=== PATIENT | male | born 1985 | race Caucasian/White ===

== ENCOUNTER 2019-04-19 00:27 | Emergency (ER) | payer BC ==
[2019-04-19 00:31] VITALS: BP 115/75; PULSE 80; TEMP 97.6
--- NOTE | 2019-04-19 01:06 | ED ---
Upper Extremity HPI - General Chief Complaint: Extremity Injury, Upper Stated Complaint: Rt Wrist Injury Time Seen by Provider: 04/19/19 00:32 Source: patient Mode of arrival: ambulatory Limitations: no limitations - History of Present Illness Initial Comments: 34-year-old male patient presents to the emergency department today for evaluation of right wrist pain. Patient states approximately one hour prior to arrival he attempted to skateboard when he fell backwards with his arm outstretched behind him. Patient states that he had immediate onset of pain to the wrist. States this felt shortly after. He denies hitting his head or losing consciousness during the fall. Denies any other injuries. Patient denies any headache, neck pain, back pain, chest pain, shortness of breath, dizziness, weakness, abdominal pain, nausea, vomiting, or difficulties with bowel movements or urination. - Related Data Previous Rx's Medication Instructions Recorded Ibuprofen [Motrin] 600 mg PO Q8HR PRN #30 tab 04/19/19 Allergies Allergy/AdvReac Type Severity Reaction Status Date / Time No Known Allergies Allergy Verified 04/19/19 00:31 Review of Systems ROS Statement: Those systems with pertinent positive or pertinent negative responses have been documented in the HPI. ROS Other: All systems not noted in ROS Statement are negative. Past Medical History Past Medical History: No Reported History History of Any Multi-Drug Resistant Organisms: None Reported Past Surgical History: No Surgical Hx Reported Past Psychological History: No Psychological Hx Reported Smoking Status: Never smoker Past Alcohol Use History: Occasional Past Drug Use History: None Reported General Exam Limitations: no limitations General appearance: alert, in no apparent distress, other (This is a well- developed, well-nourished adult male patient in no acute distress. Vital signs upon presentation are temperature 97.6F, pulse 80, respirations 20, blood pressure 115/75, pulse ox 99% on room air.) Neck exam: Present: normal inspection, full ROM, other (Nontender, no step-off, no deformity to firm midline palpation of the posterior cervical spine. Full range of motion without pain or limitation.). Absent: tenderness, meningismus, lymphadenopathy Respiratory exam: Present: normal lung sounds bilaterally. Absent: respiratory distress, wheezes, rales, rhonchi, stridor Cardiovascular Exam: Present: regular rate, normal rhythm, normal heart sounds. Absent: systolic murmur, diastolic murmur, rubs, gallop, clicks GI/Abdominal exam: Present: soft, normal bowel sounds. Absent: distended, tenderness, guarding, rebound, rigid Extremities exam: Present: full ROM, tenderness (Tenderness over the dorsal aspect of the right wrist, tenderness over the radial aspect of the right wrist.), normal capillary refill, other (There is soft tissue swelling noted over the dorsal aspect of the right wrist. Skin is pink, warm, dry. Cap refills less than 3 seconds. Radial, median, and ulnar nerve intact. Radial pulses 2+ and equal bilaterally.). Absent: normal inspection, pedal edema, joint swelling, calf tenderness Back exam: Present: normal inspection, other (Nontender, no step-off, no deformity to firm midline palpation of the thoracic and lumbar vertebrae. Full range of motion without pain or limitation.). Absent: vertebral tenderness Neurological exam: Present: alert, oriented X3, CN II-XII intact Psychiatric exam: Present: normal affect, normal mood Skin exam: Present: warm, dry, intact, normal color. Absent: rash Course Vital Signs 04/19/19 00:29 Temperature 97.6 F Pulse Rate 80 Respiratory 20 Rate Blood Pressure 115/75 O2 Sat by Pulse 99 Oximetry Procedures - Orthopedic Splinting/Casting Injury #1 Side: left Upper Extremity Injury Location: short arm, wrist Upper Extremity Immobilizer: posterior splint Additional Comments: Well padded with web roll. Neurovascular status intact after splint application. Skin to the fingers is pink, warm, dry. Cap refills less than 3 seconds. Denies numbness or tingling to the fingers. Medical Decision Making - Medical Decision Making 34-year-old male patient presented to the emergency department today for evaluation of right wrist injury. Physical examination did reveal swelling over the dorsal aspect of the right wrist. Neurovascular status is intact. X-rays were obtained and showed distal radius fracture. Patient was placed in an OCL splint. He will be discharged with follow-up with director of orthopedics for further evaluation as soon as possible. Return parameters were discussed in detail. He verbalizes understanding and agrees with this plan. - Radiology Data Radiology results: report reviewed, image reviewed 3 views of the right wrist are obtained. Report reviewed in its entirety. Impression by Dr. Gilbert shows acute distal radial fracture. Small calcific density in the dorsal soft tissues overlying the purposes concerning for fracture fragment, the donor site is not identified. Disposition Clinical Impression: Fracture of right distal radius Disposition: HOME SELF-CARE Condition: Good Instructions (If sedation given, give patient instructions): Wrist Fracture in Adults (ED), Splint Care (ED) Additional Instructions: Rest, ice, elevate the wrist. Leave splint in place until follow-up with orthopedics. Follow-up is as possible with director of orthopedics. Return to the emergency department for any new, worsening, or concerning symptoms. Prescriptions: Ibuprofen [Motrin] 600 mg PO Q8HR PRN #30 tab PRN Reason: Pain Is patient prescribed a controlled substance at d/c from ED?: No Referrals: Daquan Dimas MD [Primary Care Provider] - 1-2 days
--- NOTE | 2019-04-19 01:26 | XR ---
EXAM: XR Right Wrist Complete, 3 or More Views CLINICAL HISTORY: pain after fall TECHNIQUE: Frontal, lateral and oblique views of the right wrist. COMPARISON: No relevant prior studies available. FINDINGS: Bones/joints: Acute intra-articular fracture of the distal radial metaphysis. Alignment is maintained. Small calcific density in the dorsal soft tissues overlying the carpus is concerning for a fracture fragment, the donor site is not identified. Soft tissues: Diffuse soft tissue edema. No radiopaque foreign body. IMPRESSION: 1. Acute distal radial fracture. 2. Small calcific density in the dorsal soft tissues overlying the carpus is concerning for a fracture fragment, the donor site is not identified. CT of the wrist may be considered for further evaluation.
[2019-04-19 01:40] VITALS: RESP 18
== END 2019-04-19 01:28 | disposition home or self-care (01) ==
LOC: EC 00:27
DX: S52.501A Unspecified fracture of the lower end of right radius, initial encounter for closed fracture (principal); V00.131A Fall from skateboard, initial encounter; Y93.51 Activity, roller skating (inline) and skateboarding
CPT/HCPCS: 29125; 99283

== ENCOUNTER → 2019-04-26 | Outpatient (CLI) | payer BC ==
--- NOTE | 2019-04-27 11:46 | CT ---
EXAMINATION TYPE: CT wrist RT wo con DATE OF EXAM: 04/26/2019 COMPARISON: None HISTORY: Distal radius fracture. CT DLP: 134.[address] of the right wrist with reconstruction imaging. TECHNIQUE: Unenhanced CT of the right wrist was performed with bone and soft tissue window settings s ubmitted in the axial coronal and sagittal planes. At a separate workstation [id number] TR imaging was obta ined. FINDINGS: Overlying cast material is noted. There is distal radial fracture noted at the level of the radial styloid. There is intra-articular extension. Displacement is noted at that 2.4 mm. Small comm inuted component is identified. No evidence for callus formation. Ulna is intact as is the remainder of the visualized radius. Ossific densities are noted adjacent to the triquetrum and hamate dorsally. Cannot exclude chip fractures in this region. No additional fractures identified. Soft tissue swelli ng noted. IMPRESSION: 1. Radial fracture as discussed. 2.Ossific densities are noted adjacent to the triquetrum and hamate dorsally. Cannot exclude chip fra ctures in this region.
== END | disposition home or self-care (01) ==
LOC: RADCTMAIN 11:28
PROVIDERS: ATTEND Orthopaedic Surgery
DX: S52.511A Displaced fracture of right radial styloid process, initial encounter for closed fracture (principal); M89.8X4 Other specified disorders of bone, hand